=== PATIENT | male | born 1955 | race Hispanic/Latino ===

== ENCOUNTER → 2019-06-21 | Outpatient (CLI) | payer MEDICARE ==
[2019-06-21 11:04] LABS: BASOPHIL % 0.5 % (0.0-0.2); EOSINOPHIL # 0.4 10^3/uL (0.0-0.2); EOSINOPHIL % 5.8 % (0.0-5.0); HEMOGLOBIN 14.5 g/dL (13.9-16.3); LYMPHOCYTES # 2.9 10^3/uL (1.0-4.8); LYMPHOCYTES % 40.1 % (24.0-44.0); MEAN CELL HGB 28.2 pg (26-34); MEAN CELL HGB CONCENTRATION 32.5 g/dL (33-37); MEAN CORP VOLUME 86.8 fL (78-100); MEAN PLATELET VOLUME 9.6 fL (7.8-11.0); MONOCYTES # 0.5 10^3/uL (0.3-0.8); MONOCYTES % 6.6 % (5.0-12.0); NEUTROPHIL # 3.4 10^3/uL (1.8-7.7); NEUTROPHILS % 46.7 % (41.0-85.0); WHITE BLOOD CELL 7.3 10^3/uL (4.5-11.0)
[2019-06-21 11:41] LABS: CARBON DIOXIDE 27.4 mmol/L (20.0-32)
[2019-06-24 12:10] LABS: PSA COMPLEXED(LCI) 0.7 ng/mL (0.0-3.6)
== END | disposition home or self-care (01) ==
LOC: LAB 10:44
PROVIDERS: ATTEND Nurse Practitioner
DX: Z12.5 Encounter for screening for malignant neoplasm of prostate (principal); Z13.39 Encounter for screening examination for other mental health and behavioral disorders; G47.01 Insomnia due to medical condition; Z79.899 Other long term (current) drug therapy
CPT/HCPCS: 36415; 80053; 82306; 83036; 84152; 84439; 84443; 85025

== ENCOUNTER → 2019-11-01 | Outpatient (CLI) | payer MEDICARE | END | disposition home or self-care (01) | LOC: NPLAB 11:30 | PROVIDERS: ATTEND Nurse Practitioner | DX: M71.9 Bursopathy, unspecified (principal) | CPT/HCPCS: 87075 ==